=== PATIENT | male | born 1985 ===

== ENCOUNTER 2017-01-29 12:48 | Emergency (ER) | payer SELFPAY | END 2017-01-29 12:58 | disposition left against medical advice (07) | LOC: ER 12:48 | DX: S01.81XA Laceration without foreign body of other part of head, initial encounter (principal); X58.XXXA Exposure to other specified factors, initial encounter; Y93.89 Activity, other specified; Y92.89 Other specified places as the place of occurrence of the external cause; Y99.8 Other external cause status ==